=== PATIENT | male | born 1945 | race Caucasian/White ===

== ENCOUNTER → 2017-04-26 07:21 | Outpatient (CLI) | payer MEDICARE, SELFPAY | PROVIDERS: Family Provider Family Medicine; PCP Family Medicine; Visit Provider Urology | DX: R97.20 Elevated prostate specific antigen [PSA] (principal) | CPT/HCPCS: 36415; 84153 ==

== ENCOUNTER → 2017-05-10 07:04 | Outpatient (CLI) | payer MEDICARE, SELFPAY ==
[2017-05-10 09:33] LABS: AST(SGOT) 33 U/L (15-37); Alanine Aminotransfer ALT/SGPT 62 U/L (16-61); Albumin, Serum 3.6 g/dL (3.2-5.0); Alkaline Phosphatase 107 U/L (45-117); Bilirubin, Direct 0.15 mg/dL (0.00-0.30); Cholesterol 137 mg/dL (200); Globulin 3.9 g/dL (2.2-4.2); High Density Lipoprotein 34 mg/dL; Protein, Total 7.5 g/dL (6.4-8.2); Triglycerides 284 mg/dL; Very Low Density Lipoprotein 57 mg/dL (5-40)
== END ==
PROVIDERS: Family Provider Family Medicine; PCP Family Medicine; Visit Provider Internal Medicine Cardiovascular Disease
DX: E78.5 Hyperlipidemia, unspecified (principal); Z79.899 Other long term (current) drug therapy
CPT/HCPCS: 36415; 80061; 80076

== ENCOUNTER → 2017-11-02 08:35 | Outpatient (CLI) | payer MEDICARE, SELFPAY ==
[2017-11-02 10:12] LABS: PSA,Total- Diagnostic 9.91 ng/mL (0.0-4.0)
== END ==
PROVIDERS: Family Provider Family Medicine; PCP Family Medicine; Visit Provider Urology
DX: R97.20 Elevated prostate specific antigen [PSA] (principal)
CPT/HCPCS: 36415; 84153

== ENCOUNTER → 2017-12-11 07:35 | Outpatient (CLI) | payer MEDICARE, SELFPAY ==
[2017-12-11 09:01] LABS: AST(SGOT) 21 U/L (15-37); Alanine Aminotransfer ALT/SGPT 43 U/L (16-61); Albumin, Serum 3.6 g/dL (3.2-5.0); Alkaline Phosphatase 82 U/L (45-117); Bilirubin, Direct 0.17 mg/dL (0.00-0.30); Cholesterol 141 mg/dL (200); Globulin 3.7 g/dL (2.2-4.2); High Density Lipoprotein 33 mg/dL; Protein, Total 7.3 g/dL (6.4-8.2); Triglycerides 306 mg/dL; Very Low Density Lipoprotein 61 mg/dL (5-40)
== END ==
PROVIDERS: Family Provider Family Medicine; PCP Family Medicine; Referring Provider Nurse Practitioner Family; Visit Provider Nurse Practitioner Family
DX: E78.5 Hyperlipidemia, unspecified (principal); Z79.899 Other long term (current) drug therapy
CPT/HCPCS: 36415; 80061; 80076

== ENCOUNTER → 2018-04-29 09:17 | Outpatient (CLI) | payer MEDICARE, SELFPAY ==
[2017-12-13 09:41] VITALS: BMI 31.2
[2018-04-29 13:06] LABS: Anion Gap 9 (5-15); BUN 14 mg/dL (7-18); BUN/Creat Ratio 10.2 RATIO (10-20); Calcium,Total 8.4 mg/dL (8.5-10.1); Chloride 105 mmol/L (98-107); Creatinine, Serum 1.37 mg/dL (0.70-1.30); EST Glomerular Filtration Rate 54 mL/min (>60); Est Glom Filt Rate - Afr Amer 65 mL/min (>60); Glucose 284 mg/dL (74-106); Potassium 4.3 mmol/L (3.5-5.1); Sodium Level 138 mmol/L (136-145); Thyroid Stim Hormone (TSH) 2.57 uIU/mL (0.358-3.74)
== END ==
PROVIDERS: Family Provider Family Medicine; PCP Family Medicine; Visit Provider Family Medicine
DX: E11.9 Type 2 diabetes mellitus without complications (principal)
CPT/HCPCS: 36415; 80048; 84443

== ENCOUNTER → 2018-06-18 10:56 | Outpatient (CLI) | payer MEDICARE, SELFPAY ==
[2018-06-18 09:17] VITALS: BMI 29.8
[2018-06-18 12:02] LABS: Absolute Lymphocyte Count 2.34 X10^3/ul (0.83-4.51); Absolute Neutrophil Count 3.1 X10^3/uL (2.0-7.7); Basophil# 0.05 X10^3/uL; Basophil% 0.8 % (0-1); Eosinophil# 0.33 X10^3/uL; Eosinophils% 5.3 % (0-5); Hematocrit 41.7 % (40-54); Lymphocyte # 2.34 X10^3/ul (4.0); Lymphocyte % 37.7 % (19-41); Mean Corp Hgb Conc 33.6 g/gl (32-36); Mean Corpuscular Hgb 28.6 pg (27.0-32.0); Mean Corpuscular Volume 85.1 fL (80-94); Mean Platelet Vol. 10.8 fl (6.2-12.0); Monocyte% 6.4 % (0-10); Neutrophil # 3.08 X10^3/uL (2.7-7.7); Neutrophil % 49.6 % (47-70); Platelet Count 153 K/mm3 (150-450); RBC Distribution Width CV 13.2 % (11.6-14.6); RBC Distribution Width SD 40.9 fl (35.1-43.9); White Blood Count 6.2 K/mm3 (4.4-11.0)
[2018-06-18 12:14] LABS: POSITIVE COUNT NO; POSITIVE DIFFERENTIAL NO; POSITIVE MORPHOLOGY NO
[2018-06-18 12:57] LABS: AST(SGOT) 23 U/L (15-37); Alanine Aminotransfer ALT/SGPT 47 U/L (16-61); Albumin, Serum 3.7 g/dL (3.2-5.0); Alkaline Phosphatase 91 U/L (45-117); Anion Gap 6 (5-15); BUN 17 mg/dL (7-18); BUN/Creat Ratio 12.9 RATIO (10-20); Bilirubin, Direct 0.21 mg/dL (0.00-0.30); Calcium,Total 8.6 mg/dL (8.5-10.1); Chloride 103 mmol/L (98-107); Cholesterol 139 mg/dL (200); Creatinine, Serum 1.32 mg/dL (0.70-1.30); EST Glomerular Filtration Rate 56 mL/min (>60); Est Glom Filt Rate - Afr Amer 68 mL/min (>60); Globulin 3.8 g/dL (2.2-4.2); Glucose 319 mg/dL (74-106); High Density Lipoprotein 36 mg/dL; Potassium 4.7 mmol/L (3.5-5.1); Protein, Total 7.5 g/dL (6.4-8.2); Sodium Level 137 mmol/L (136-145); Thyroid Stim Hormone (TSH) 2.63 uIU/mL (0.358-3.74); Triglycerides 255 mg/dL; Very Low Density Lipoprotein 51 mg/dL (5-40)
== END ==
PROVIDERS: Family Provider Family Medicine; PCP Family Medicine; Referring Provider Internal Medicine Cardiovascular Disease; Visit Provider Internal Medicine Cardiovascular Disease
DX: I10 Essential (primary) hypertension (principal)
CPT/HCPCS: 36415; 80048; 80061; 80076; 84443; 85025

== ENCOUNTER → 2018-07-09 08:48 | Outpatient (CLI) | payer MEDICARE, SELFPAY ==
[2018-06-18 09:17] VITALS: BMI 29.8
--- NOTE | 2018-07-09 08:54 | ECHOCS_ITS ---
Reason For Study: HTN Procedure This was a 2D Doppler, Color Flow transthoracic echocardiogram. Exam performed in department. Left Ventricle Normal LV size. The estimated ejection fraction is 38 %. Septal motion consistent with IVCD. Stage 1 diastolic dysfunction. There is mild to moderate global hypokinesis of the left ventricle. Right Ventricle Normal RV size. Normal systolic function. Atria Normal left atrium. Normal right atrium. Mitral Valve Normal mitral valve. Tricuspid Valve Normal tricuspid valve. Mild (1+) tricuspid valve insufficiency. Pulmonary artery systolic pressure is 28 mmHg. Aortic Valve Normal aortic valve. Trisinus/trileaflet aortic valve. Pulmonic Valve Normal pulmonic valve. Great Vessels Normal aortic root. The pulmonary artery is normal size. Normal inferior vena cava. Pericardium/Pleural No pericardial effusion. Medication 22 gauge I.V. with prn adaptor inserted into right arm. Diluted definity 2ml given slow IV push to enhance endocardial definition. MMode/2D Measurements & Calculations LVIDd: 4.4 cm IVSd: 0.87 cm LVOT diam: 0.88 cm LVIDs: 3.3 cm LVPWd: 4.3 cm RVDd: 3.8 cm FS: 25.0 % LVOT area: 0.61 cm2 Ao root diam: 3.2 cm LAV(MOD-bp): 36.1 ml EDV(MOD-sp4): 140.3 ml LAV(MOD-bp) Indexed: 17.3 ml/m2 ESV(MOD-sp4): 87.5 ml LAV(MOD-sp2): 48.2 ml EF(MOD-sp4): 37.6 % LAV(MOD-sp4): 20.8 ml EDV(MOD-sp2): 155.8 ml SV(MOD-sp4): 52.8 ml SV(MOD-sp2): 62.2 ml EF(MOD-sp2): 40.0 % LA dimension(2D): 3.7 cm LA A4 area: 9.8 cm2 RA A4 area: 9.7 cm2 Time Measurements MV dec time: 0.31 sec Doppler Measurements & Calculations MV E max vinh: 46.3 cm/sec Lat Peak E' Vinh: 5.7 cm/sec Med Peak E' Vinh: 3.7 cm/sec MV A max vinh: 79.3 cm/sec E/E' lat: 8.2 E/E' med: 12.4 MV E/A: 0.58 Ao V2 max: 100.9 cm/sec LV V1 max: 83.0 cm/sec PA V2 max: 119.8 cm/sec Ao max P.1 mmHg LV V1 max P.8 mmHg CLEMENCIA(V,D): 0.51 cm2 TR max vinh: 243.4 cm/sec TR max P.7 mmHg Interpretation Summary Normal LV size. The estimated ejection fraction is 38 %. Septal motion consistent with IVCD. Stage 1 diastolic dysfunction. Pulmonary artery systolic pressure is 28 mmHg. The global longitudinal strain = -9.8% (abnormal). Compared to prior study, there is no significant change. Contrast injection was performed. Ordering Physician: Benson Cross Referring Physician: JEN VASQUEZ Performed By: Eli Raza, CRISTINA, RVT
== END ==
PROVIDERS: Family Provider Family Medicine; PCP Family Medicine; Referring Provider Internal Medicine Cardiovascular Disease; Visit Provider Internal Medicine Cardiovascular Disease
DX: I25.10 Atherosclerotic heart disease of native coronary artery without angina pectoris (principal); I10 Essential (primary) hypertension
CPT/HCPCS: 93306; Q9957; A4216; C8929

== ENCOUNTER → 2018-11-05 07:11 | Outpatient (CLI) | payer MEDICARE, SELFPAY ==
[2018-06-18 09:17] VITALS: BMI 29.8
[2018-11-05 09:34] LABS: PSA,Total- Diagnostic 9.94 ng/mL (0.0-4.0)
== END ==
PROVIDERS: Family Provider Family Medicine; PCP Family Medicine; Referring Provider Urology; Visit Provider Urology
DX: R97.20 Elevated prostate specific antigen [PSA] (principal)
CPT/HCPCS: 36415; 84153

== ENCOUNTER → 2019-01-01 11:52 | Outpatient (CLI) | payer MEDICARE, SELFPAY ==
[2018-06-18 09:17] VITALS: BMI 29.8
== END ==
PROVIDERS: Family Provider Family Medicine; PCP Family Medicine; Referring Provider Nurse Practitioner Adult Health; Visit Provider Nurse Practitioner Adult Health
DX: R31.9 Hematuria, unspecified (principal)
CPT/HCPCS: 87077; 87086; 87088; 87186

== ENCOUNTER → 2019-01-07 06:22 | Outpatient (CLI) | payer MEDICARE, SELFPAY ==
[2018-06-18 09:17] VITALS: BMI 29.8
--- NOTE | 2019-01-07 06:24 | CT_ITS ---
STUDY: CT ABDOMEN AND PELVIS WITH AND WITHOUT CONTRAST REASON FOR EXAM: Male, 73 years old. Hematuria RADIATION DOSAGE (If Supplied By Facility): CTDIvol = ( 23.51 ) mGy, DLP = ( 3316.9 ) mGycm TECHNIQUE: Transaxial images were obtained from the dome of the diaphragm to the symphysis pubis without oral contrast. IV Isovue 300 100 was administered. Sagittal and coronal images were reconstructed. Individualized dose optimization techniques were used for this CT. COMPARISON: None. FINDINGS: The visualized lung bases are unremarkable. The visualized portions of the heart are within normal limits. Normal liver. Normal gallbladder and extrahepatic biliary system. Normal spleen. Normal pancreas. Normal bilateral adrenal glands. There is a right renal cyst measures 2 cm. There is a stone in the left kidney measures 3 mm without hydronephrosis. There is a left renal cyst measures 2 cm. Normal visualized stomach. Normal small intestine. Normal colon. The appendix is visualized and appears normal. Normal abdominal aorta. Normal inferior vena cava. Normal retroperitoneum. Normal urinary bladder. There is enlargement of the prostate gland. Normal abdominal wall. There are diffuse degenerative changes of the visualized lumbar spine. There is chronic bilateral pars defect of L5 with 5 mm spondylolisthesis at L5-S1. CT/CT Abd/Pelvis W/WO Contrast IMPRESSION: Left kidney stone measures 3 mm. There is no hydronephrosis. Prostate hypertrophy. Electronically Signed: Valeria Tyson, at 7:55 EDT Tel , Service support ,
[2019-01-07 06:41] LABS: CREATININE FINGERSTICK 1.3 mg/dL (0.70-1.30)
== END ==
PROVIDERS: Family Provider Family Medicine; PCP Family Medicine; Referring Provider Nurse Practitioner Adult Health; Visit Provider Nurse Practitioner Adult Health
DX: R31.9 Hematuria, unspecified (principal)
CPT/HCPCS: 74178; Q9967

== ENCOUNTER → 2019-05-01 09:36 | Outpatient (CLI) | payer MEDICARE, SELFPAY ==
[2018-06-18 09:17] VITALS: BMI 29.8
[2019-05-01 10:44] LABS: AST(SGOT) 20 U/L (15-37); Alanine Aminotransfer ALT/SGPT 40 U/L (16-61); Albumin, Serum 3.7 g/dL (3.2-5.0); Alkaline Phosphatase 89 U/L (45-117); Anion Gap 7 (5-15); BUN 16 mg/dL (7-18); BUN/Creat Ratio 11.5 RATIO (10-20); Chloride 106 mmol/L (98-107); Creatinine, Serum 1.39 mg/dL (0.70-1.30); EST Glomerular Filtration Rate 53 mL/min (>60); Est Glom Filt Rate - Afr Amer 64 mL/min (>60); Globulin 3.7 g/dL (2.2-4.2); Glucose 375 mg/dL (74-106); Potassium 4.4 mmol/L (3.5-5.1); Protein, Total 7.4 g/dL (6.4-8.2); Sodium Level 137 mmol/L (136-145); Thyroid Stim Hormone (TSH) 2.75 uIU/mL (0.358-3.74)
== END ==
PROVIDERS: PCP Family Medicine; Referring Provider Family Medicine; Visit Provider Family Medicine
DX: E11.9 Type 2 diabetes mellitus without complications (principal)
CPT/HCPCS: 36415; 80053; 84443

== ENCOUNTER → 2019-08-07 08:22 | Outpatient (CLI) | payer MEDICARE, SELFPAY ==
[2018-06-18 09:17] VITALS: BMI 29.8
[2019-08-07 09:53] LABS: PSA,Total- Diagnostic 8.36 ng/mL (0.0-4.0)
== END ==
PROVIDERS: PCP Family Medicine; Referring Provider Urology; Visit Provider Urology
DX: N40.1 Benign prostatic hyperplasia with lower urinary tract symptoms (principal)
CPT/HCPCS: 36415; 84153

== ENCOUNTER → 2019-08-19 08:03 | Outpatient (CLI) | payer MEDICARE, SELFPAY ==
[2019-08-14 09:47] VITALS: BMI 28.4
[2019-08-19 08:43] LABS: AST(SGOT) 19 U/L (15-37); Alanine Aminotransfer ALT/SGPT 35 U/L (16-61); Albumin, Serum 3.6 g/dL (3.2-5.0); Alkaline Phosphatase 82 U/L (45-117); Anion Gap 6 (5-15); BUN 19 mg/dL (7-18); BUN/Creat Ratio 14.6 RATIO (10-20); Bilirubin, Direct 0.23 mg/dL (0.00-0.30); Calcium,Total 8.5 mg/dL (8.5-10.1); Chloride 105 mmol/L (98-107); Cholesterol 151 mg/dL (200); EST Glomerular Filtration Rate 57 mL/min (>60); Est Glom Filt Rate - Afr Amer 69 mL/min (>60); Globulin 3.7 g/dL (2.2-4.2); Glucose 311 mg/dL (74-106); High Density Lipoprotein 35 mg/dL; Potassium 4.4 mmol/L (3.5-5.1); Protein, Total 7.3 g/dL (6.4-8.2); Sodium Level 139 mmol/L (136-145); Triglycerides 307 mg/dL; Very Low Density Lipoprotein 61 mg/dL (5-40)
== END ==
PROVIDERS: PCP Family Medicine; Referring Provider Internal Medicine Cardiovascular Disease; Visit Provider Internal Medicine Cardiovascular Disease
DX: E78.00 Pure hypercholesterolemia, unspecified (principal); I25.10 Atherosclerotic heart disease of native coronary artery without angina pectoris; E78.5 Hyperlipidemia, unspecified; I42.8 Other cardiomyopathies; I44.7 Left bundle-branch block, unspecified; I44.0 Atrioventricular block, first degree; I10 Essential (primary) hypertension
CPT/HCPCS: 36415; 80048; 80061; 80076

== ENCOUNTER → 2020-01-29 09:48 | Outpatient (CLI) | payer MEDICARE, SELFPAY ==
[2020-01-29 13:35] LABS: AST(SGOT) 18 U/L (15-37); Alanine Aminotransfer ALT/SGPT 33 U/L (16-61); Albumin, Serum 3.8 g/dL (3.2-5.0); Alkaline Phosphatase 86 U/L (45-117); Anion Gap 5 (5-15); BUN 21 mg/dL (7-18); BUN/Creat Ratio 14.7 RATIO (10-20); Calcium,Total 8.8 mg/dL (8.5-10.1); Chloride 107 mmol/L (98-107); Cholesterol 145 mg/dL (200); Creatinine, Serum 1.43 mg/dL (0.70-1.30); EST Glomerular Filtration Rate 51 mL/min (>60); Est Glom Filt Rate - Afr Amer 62 mL/min (>60); Glucose 185 mg/dL (74-106); High Density Lipoprotein 37 mg/dL; Potassium 4.5 mmol/L (3.5-5.1); Protein, Total 7.8 g/dL (6.4-8.2); Sodium Level 139 mmol/L (136-145); Triglycerides 226 mg/dL; Very Low Density Lipoprotein 45 mg/dL (5-40)
== END ==
PROVIDERS: PCP Family Medicine; Referring Provider Family Medicine; Visit Provider Family Medicine
DX: R97.20 Elevated prostate specific antigen [PSA] (principal); E11.9 Type 2 diabetes mellitus without complications
CPT/HCPCS: 36415; 80053; 80061; 84153

== ENCOUNTER → 2020-04-06 07:45 | Outpatient (CLI) | payer MEDICARE, SELFPAY | PROVIDERS: PCP Family Medicine; Referring Provider Urology; Visit Provider Urology | DX: R97.20 Elevated prostate specific antigen [PSA] (principal) | CPT/HCPCS: 36415; 84153 ==

== ENCOUNTER 2020-04-23 08:29 | Outpatient (RCR) | payer MEDICARE, SELFPAY | END 2020-04-23 23:59 | LOC: IMMUN 08:29 | PROVIDERS: PCP Family Medicine; Referring Provider Family Medicine; Visit Provider Family Medicine | DX: Z23 Encounter for immunization (principal) | CPT/HCPCS: 0011A; 0012A; 91301 ==

== ENCOUNTER → 2020-08-19 08:52 | Outpatient (CLI) | payer MEDICARE, SELFPAY ==
--- NOTE | 2020-08-19 09:04 | RAD_ITS ---
STUDY: X-RAY - LEFT ELBOW REASON FOR EXAM: Male, 74 years old. POSTERIOR ELBOW PAIN, NO INJURY TECHNIQUE: 3 view(s) of the elbow. COMPARISON: None. FINDINGS: Normal visualized radius and ulna. Small corticated ossicles at the periphery of the lateral humeral condyle likely represent unfused apophyses. The humerus is otherwise normal. Normal radiocapitellar and ulnotrochlear articulations. The soft tissue structures are unremarkable. There is no demonstrated fracture. RAD/Elbow min 3 Views IMPRESSION: No visualized acute or significant process of the elbow Electronically Signed: Rogers Wells MD at 21:16 EDT , Service support ,
[2020-08-19 10:49] LABS: AST(SGOT) 20 U/L (15-37); Alanine Aminotransfer ALT/SGPT 30 U/L (16-61); Albumin, Serum 3.8 g/dL (3.2-5.0); Alkaline Phosphatase 89 U/L (45-117); Anion Gap 8 (5-15); BUN 21 mg/dL (7-18); BUN/Creat Ratio 16.8 RATIO (10-20); Calcium,Total 8.7 mg/dL (8.5-10.1); Chloride 106 mmol/L (98-107); Cholesterol 173 mg/dL (200); Creatinine, Serum 1.25 mg/dL (0.70-1.30); EST Glomerular Filtration Rate 60 mL/min (>60); Est Glom Filt Rate - Afr Amer 72 mL/min (>60); Globulin 3.9 g/dL (2.2-4.2); Glucose 205 mg/dL (74-106); High Density Lipoprotein 42 mg/dL; Protein, Total 7.7 g/dL (6.4-8.2); Sodium Level 139 mmol/L (136-145); Thyroid Stim Hormone (TSH) 2.62 uIU/mL (0.358-3.74); Triglycerides 273 mg/dL; Very Low Density Lipoprotein 55 mg/dL (5-40)
== END ==
PROVIDERS: PCP Family Medicine; Referring Provider Family Medicine; Visit Provider Family Medicine
DX: M25.522 Pain in left elbow (principal); E11.9 Type 2 diabetes mellitus without complications
CPT/HCPCS: 36415; 73080; 80053; 80061; 84443

== ENCOUNTER 2020-09-30 08:00 | Outpatient (RCR) | payer MEDICARE, SELFPAY ==
--- NOTE | 2020-08-26 12:39 | HP.PTEVAL ---
Patient's Visit Information ROBBIN BROWN is a 74 year old M referred to Physical Therapy by Dr. Arnie Whalen MD with a diagnosis of Tricep Tendonitis. Date of Evaluation: 08/25/20 Physical Therapist: Josue Wharton DPT - Visit Plan Frequency: 1-2x /Week Duration: 4-6 Weeks Plan: Shoulder, scapular, tricep, bicep, wrist flexor, and wrist extensor strengthening. Modalities for pain relief. - Subjective The pt. is here today for left elbow pain near the medial epicondyle, referred by Dr. Whalen. The pt. states that his pain started without a cause a few weeks ago and has been intermittent ever since. The pt. cannot recall a specific event that caused his pain. He states that his pain comes on mostly when gardening, mowing, doing things around the house for a long period of time, and while opening a jar with his left hand. The pt. has been taking Tylenol or Advil occasionally for pain relief, but does not notice a significant change. The pt. works for an [employer] during the week and tries to gold about one time a week, but would like to golf more. He does not experience pain in the elbow when golfing or while he sleeps. The pt. is right handed and golfs right handed. He states that he used to come to [employer] to workout 2x a week prior to [place], but has not done this for over a year. He feels that he does not have as much strength in his left arm compared to his right arm and compared to what it used to be. He states that his pain at its worst can get up to a 2/10 pain, but comes and goes spontaneously. He states that he always feels something there. The pt. is not experiencing any N/T, SOB, chest tightness, frequent headaches, changes in vision/hearing, or frequent stomach aches. - Pain Left elbow Pain Intensity (Out of 10): 1 Pain Intensity Range: 2 - Objective Posture: All WNL. ROM: Shoulder flexion bilat WNL, shoulder abduction bilat WNL, behind the head bilat WNL, behind the back bilat WNL, elbow flexion bilat WNL, elbow extension bilat WNL. MMT: shoulder flexion bilat 5/5, shoulder abduction bilat 5/5, tricep R 5/5, L 4/5, bicep R 5/5, L 4+/5, brachioradialis R 5/5, L 4+/5, brachialis R 5/5, L 4+/5, wrist flexion bilat 5/5, wrist extension bilat 5/5, upper trap bilat 5/5, middle trap 4+/5 bilat, lower trap 4+/5. Palpation: TTP on left medial epicondyle and superior to the medial epicondyle, near triceps tendon. No tenderness noted along tricep or bicep msucle belly, or on lateral epicondyle and the olecranon. Observation: Pt. was able to perform 5 wall pushups without having an increase in symptoms, but with tricep wall pushups the pt. did experience an increase in his symptoms. Pts. symptoms did not increase with banded tricep extension or with eccentric wrist flexion. Special tests: - Cozens, - Ness, - Maudsley's, but did cause pain to the medial epicondyle, - resisted flexion test, - passive extension test. - Special Tests L Elbow Tinels - Ulnar n.: Negative L Elbow Valgus Stress Test - MCL Instability: Negative L Elbow Varus Stress Stest - MCL Instability: Negative - Goals Goal 1:: LTG: The pt. will be independent and compliant with their HEP. Goal Time Frame: 2-4 Weeks Goal 2:: LTG: The pt. will be able to perform all ADL's and activities without having an increase in symptoms of pain and discomfort. Goal Time Frame: 4-6 Weeks Goal 3:: LTG: The pt. will increase his left general upper extremity strength to a 5/5, so he can perform all activities without limitations. Goal Time Frame: 4-6 Weeks Goal 4:: LTG: Pt. to have no occurrence in symptoms for 2 whole weeks. Goal Time Frame: 4-6 Weeks - Rehabilitation Potential Physical Therapy Diagnosis: The pt. is a 74 yo male who presents to the clinic with medial epicondyle pain that occurs intermittently. The pts. symptoms are reproduced when opening a jar or doing activities that involve the upper extremities for long periods of time. The pt. exhibits limitations in left upper extremity strength and is tender to palpation on the medial epicondyle. The pt. has been experiencing his pain for a couple of weeks and would like for PT to address his impairments and limitations, so he can resume doing all ADL's and playing golf without pain or discomfort. Rehabilitation Potential: Good - Anticipated Interventions Patient/Client Instruction: Educate patient on: Condition, Plan of Care For the Purpose of:: To decrease pain, To increase ROM, To improve muscle performance and motor function, To improve ability to perform ADL's, To increase tolerance to activity/condition/position, To decrease level of supervision to perform tasks, To increase flexibility/ROM, To assume or resume ADL's Therapeutic Exercise to Include: Strength training, Body mechanics, Flexibilty training, Passive ROM, Active ROM, Scapular Strength/Stabilization For the Purpose of:: To decrease pain, To increase ROM, To improve muscle performance and motor function, To improve ability to perform ADL's, To increase tolerance to activity/condition/position, To improve performance and independence with ADL's, To improve ability of physical actions for home/community/work/leisure, To increase flexibility/ROM, To improve endurance, To assume or resume ADL's, To improve tolerance to ADL's Manual Therapy Techniques to Include: Trigger point massage, Scar massage, Mobilization, Passive ROM For the Purpose of:: To decrease pain, To increase ROM, To improve muscle performance and motor function, To improve ability to perform ADL's, To increase tolerance to activity/condition/position, To improve performance and independence with ADL's, To increase flexibility/ROM, To assume or resume ADL's TENS: Yes Cryotherapy (ice pack, ice massage): Yes Thermo therapy (hot pack): Yes Ultrasound (thermal/non thermal): Yes For the Purpose of:: To decrease pain, To improve nutrient delivery to tissue, To improve muscle performance and motor function, To increase tolerance to activity/condition/position, To improve performance and independence with ADL's Thank you for the opportunity to evaluate your patient. For Medicare and Medicare HMO plans, please review the plan of care and approve it. It will need to be FAXED BACK to us at [phone] for Medicare purposes. For Medicare only, by signing this I certify the plan of care. Please let me know if there are questions or concerns regarding this plan of care. Physician Signature: Date:
== END 2020-09-30 19:00 | disposition home or self-care (01) ==
LOC: PT 08:00
PROVIDERS: PCP Family Medicine; Referring Provider Family Medicine; Visit Provider Family Medicine
DX: M77.8 Other enthesopathies, not elsewhere classified (principal)
CPT/HCPCS: 97035; 97110; 97140; 97161

== ENCOUNTER 2021-05-25 08:35 | Outpatient (CLI) | payer MEDICARE, SELFPAY ==
[2021-05-25 10:37] LABS: ALB/GLOB Ratio 1.1 RATIO (0.9-2.4); AST(SGOT) 26 U/L (15-37); Alanine Aminotransfer ALT/SGPT 40 U/L (16-61); Albumin, Serum 3.8 g/dL (3.2-5.0); Alkaline Phosphatase 85 U/L (45-117); Anion Gap 8 (5-15); BUN 18 mg/dL (7-18); Calcium,Total 8.3 mg/dL (8.5-10.1); Chloride 108 mmol/L (98-107); Cholesterol 133 mg/dL (200); EST Glomerular Filtration Rate 62 mL/min (>60); Est Glom Filt Rate - Afr Amer 75 mL/min (>60); Globulin 3.6 g/dL (2.2-4.2); Glucose 193 mg/dL (74-106); High Density Lipoprotein 33 mg/dL; Protein, Total 7.4 g/dL (6.4-8.2); Sodium Level 138 mmol/L (136-145); Thyroid Stim Hormone (TSH) 2.96 uIU/mL (0.358-3.74); Triglycerides 213 mg/dL; Very Low Density Lipoprotein 43 mg/dL (5-40)
== END 2021-05-25 23:59 | disposition home or self-care (01) ==
LOC: MFPLAB 08:36
PROVIDERS: PCP Family Medicine; Referring Provider Family Medicine; Visit Provider Family Medicine
DX: E11.9 Type 2 diabetes mellitus without complications (principal); R97.20 Elevated prostate specific antigen [PSA]
CPT/HCPCS: 36415; 80053; 80061; 84153; 84403; 84443

== ENCOUNTER 2021-05-26 09:59 | Outpatient (CLI) | payer MEDICARE, SELFPAY ==
--- NOTE | 2021-05-26 10:05 | ECHOD_ITS ---
Reason For Study: CHF Procedure This was a 2D Doppler, Color Flow transthoracic echocardiogram. Exam performed in department. Left Ventricle Normal LV size. Mild concentric left ventricular hypertrophy. The estimated ejection fraction is 35 %. Septal motion consistent with IVCD. Stage 1 diastolic dysfunction. There is moderate global hypokinesis of the left ventricle. Right Ventricle Normal RV size. Normal systolic function. Atria Normal left atrium. Normal right atrium. Mitral Valve Normal mitral valve. Tricuspid Valve Normal tricuspid valve. Mild tricuspid valve insufficiency. Pulmonary artery systolic pressure is 20 mmHg. Aortic Valve Trisinus/trileaflet aortic valve. Pulmonic Valve Normal pulmonic valve. Great Vessels Normal aortic root. The pulmonary artery is normal size. Normal inferior vena cava. Pericardium/Pleural No pericardial effusion. MMode/2D Measurements & Calculations LVIDd: 4.5 cm IVSd: 1.2 cm Ao root diam: 3.5 cm LVIDs: 3.5 cm LVPWd: 1.3 cm RVDd: 3.5 cm FS: 20.7 % LAV(MOD-bp): 52.3 ml LA A4 area: 17.7 cm2 LA dimension(2D): 3.4 cm LAV(MOD-bp) Indexed: 25.3 ml/m2 LAV(MOD-sp2): 49.8 ml LAV(MOD-sp4): 51.0 ml RA A4 area: 12.8 cm2 Doppler Measurements & Calculations MV E max vinh: 36.4 cm/sec Lat Peak E' Vinh: 6.2 cm/sec Med Peak E' Vinh: 4.0 cm/sec MV A max vinh: 86.6 cm/sec E/E' lat: 5.9 E/E' med: 9.1 MV E/A: 0.42 Ao V2 max: 94.5 cm/sec LV V1 max: 72.4 cm/sec PA V2 max: 112.6 cm/sec Ao max P.6 mmHg LV V1 max P.1 mmHg TR max vinh: 194.4 cm/sec TR max P.1 mmHg ECHO/Echo Complete Interpretation Summary Normal LV size. The estimated ejection fraction is 35 %. There is moderate global hypokinesis of the left ventricle. Septal motion consistent with IVCD. Mild concentric left ventricular hypertrophy. Stage 1 diastolic dysfunction. Structurally normal valves. Compared to previous study, the left ventricular sy stolic function is the same.. Ordering Physician: Gianni Colmenares Referring Physician: Anup Whalen Performed By: Areli Baker RDCS, RVT
== END 2021-05-26 23:59 | disposition home or self-care (01) ==
PROVIDERS: PCP Family Medicine; Referring Provider Nurse Practitioner Family; Visit Provider Nurse Practitioner Family
DX: I44.7 Left bundle-branch block, unspecified (principal); I42.8 Other cardiomyopathies; I10 Essential (primary) hypertension
CPT/HCPCS: 93306

== ENCOUNTER 2022-01-19 08:00 | Outpatient (RCR) | payer MEDICARE, SELFPAY ==
--- NOTE | 2021-11-29 09:02 | HP.PTEVAL_ITS ---
Patient's Visit Information ROBBIN BROWN is a 76 year old M referred to Physical Therapy by Dr. Arnie Whalen MD with a diagnosis of lumbar strain. Date of Evaluation: 11/29/21 Physical Therapist: GABRIELLE Gomez - Visit Plan Frequency: 2x /Week Duration: 4 Weeks Plan: 2X/ week for 4 weeks for L-spine core stability, stretching of the L- spine, LE strength, postural exercises, MT to the L spine and paraspinals with HEP and modalities as needed. - Subjective Pt feels that he has a back muscle issue and on both sides. He can feel a stretch when bending FW. Today does not feel too bad. He can golf. Dr Juares did not feel it was spine involved. He has no leg weakness but he has a little bit of diabetic neuropathy. He was down with COVID and it took him down a little bit. He had no major issue but just tired. His back started to hurt for a few weeks now ([place] the end of [place] Sitting makes it worse. He can feel it when he starts to get up. He has some L knee pain but it does not seem to be related to his back. He does not sleep well and sleeps on his sides. He goes up to the bathroom every 2.5-3 hours but somedays he can get 4 hours. Going up and down stairs he can feel it. He can feel after he does his garden. He just golfs and working in the yard but no exercises. 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 - Pain back pain Pain Intensity (Out of 10): 0 - Objective Gait: Pt walks with decrease trunk rotation but otherwise normal gait pattern. R hip flex 16.4# and L hip flex 12.9#. R knee ext 16.8# and L knee ext 15.4#. R knee flex 10.8# and L knee flex 8.9#. Pt is able to walk on heels and toes. Trunk AROM: flexion 50%, Ext 10%, SB B 50%, Rot 50%. Prone press up... almost no back extension and pelvis is up off the mat table and not able to extend B arms. Seated trunk flex X 10 increase pain when bend fw. Pt had some increase discomfort with rotation mobs around L1-L3 but extension mobs felt good with no pain. Pt reports that he feels it around his L-spine paraspinals. Pt has tight B piriformis. No pain with LTR. Patella DTR's 2+/3. Negative B SLUMP test and negative SLR B - Balance/Special Test Scores Oswestry Low Back Score: 8 - Goals Goal 1:: I HEP Goal Time Frame: 4-6 Weeks Goal 2:: Decrease LB pain to 1/10 with ADL's especially with sitting unsupported Goal Time Frame: 4-6 Weeks Goal 3:: Increase trunk AROM with no pain (at time of the eval: Trunk AROM: flexion 50%, Ext 10%, SB B 50%, Rot 50%. Prone press up... almost no back extension and pelvis is up off the mat table and not able to extend B arms. Seated trunk flex X 10 increase pain when bend fw) Goal Time Frame: 4-6 Weeks - Rehabilitation Potential Rehabilitation Potential: Excellent - Anticipated Interventions Patient/Client Instruction: Educate patient on: Condition, Plan of Care For the Purpose of:: To decrease pain, To increase ROM, To improve nutrient delivery to tissue, To improve muscle performance and motor function, To improve ability to perform ADL's, To increase tolerance to activity/condition/position, To improve performance and independence with ADL's, To decrease level of supervision to perform tasks, To improve ability of physical actions for home/community/work/leisure, To improve health of tissue, To decrease soft tissue restriction, To increase flexibility/ROM Therapeutic Exercise to Include: Strength training, Body mechanics, Postural training, Flexibilty training, Neuromotor development, Passive ROM, Active ROM, Dynamic Lumbar Stabilization, Torsten Exercises For the Purpose of:: To decrease pain, To increase ROM, To improve nutrient delivery to tissue, To improve muscle performance and motor function, To improve ability to perform ADL's, To increase tolerance to activity/condition/position, To improve performance and independence with ADL's, To decrease level of supervision to perform tasks, To improve ability of physical actions for home/community/work/leisure, To improve gait and locomotor functions, To improve health of tissue, To decrease soft tissue restriction, To increase flexibility/ROM Manual Therapy Techniques to Include: Mobilization, Passive ROM, Soft tissue mobilization For the Purpose of:: To decrease pain, To decrease swelling/inflammation, To increase ROM, To improve nutrient delivery to tissue, To improve muscle performance and motor function, To improve ability to perform ADL's, To increase tolerance to activity/condition/position, To improve performance and independence with ADL's, To improve ability of physical actions for home/community/work/leisure, To improve health of tissue, To decrease soft tissue restriction, To increase flexibility/ROM IF ES: Yes Cryotherapy (ice pack, ice massage): Yes Thermo therapy (hot pack): Yes Ultrasound (thermal/non thermal): Yes For the Purpose of:: To decrease pain, To improve nutrient delivery to tissue, To improve muscle performance and motor function Thank you for the opportunity to evaluate your patient. For Medicare and Medicare HMO plans, please review the plan of care and approve it. It will need to be FAXED BACK to us at [phone] for Medicare purposes. For Medicare only, by signing this I certify the plan of care. Please let me know if there are questions or concerns regarding this plan of care. Physician Signature: Date:
--- NOTE | 2022-01-19 09:04 | HP.PTREVAL_ITS ---
Dr. Arnie Whalen MD, It has been my pleasure to treat ROBBIN BROWN over the last 10 visits for lumbar strain. Please see the progress note below for an update on the physical therapy plan of care! Subjective: Pt. reports being 75% better overall. what ever we did last time really helped. pt. reports having a root canal yesterday with good toelrance. Objective/Function: Pt. did well with PT this date. No issues post PT. Pt. to trial exercise on his own at this point in time. No pain post PT. Plan Plan: Pt. to trial on his own at this point in time. Pt. I with HEP. Pt. has good ROM mild increase iwth extension. He reports being able to do yard work better and tolerate work better. Balance/Gait/Functional tests - Balance/Special Test Scores Oswestry Low Back Score: 5 Goals Goal 1:: I HEP Goal Time Frame: 4-6 Weeks Goal Progress: Progressing Goal 2:: Decrease LB pain to 1/10 with ADL's especially with sitting unsupported Goal Time Frame: 4-6 Weeks Goal Progress: Progressing Goal 3:: Increase trunk AROM with no pain (min loss in all directions with increase in symptoms) Goal Time Frame: 4-6 Weeks Goal Progress: Progressing Anticipated Interventions Patient/Client Instruction: Educate patient on: Condition, Plan of Care For the Purpose of:: To decrease pain, To increase ROM, To improve nutrient de livery to tissue, To improve muscle performance and motor function, To improve ability to perform ADL's, To increase tolerance to activity/condition/position, To improve performance and independence with ADL's, To decrease level of supervision to perform tasks, To improve ability of physical actions for home/community/work/leisure, To improve health of tissue, To decrease soft tissue restriction, To increase flexibility/ROM Therapeutic Exercise to Include: Strength training, Body mechanics, Postural training, Flexibilty training, Neuromotor development, Passive ROM, Active ROM, Dynamic Lumbar Stabilization, Torsten Exercises For the Purpose of:: To decrease pain, To increase ROM, To improve nutrient delivery to tissue, To improve muscle performance and motor function, To improve ability to perform ADL's, To increase tolerance to activity/condition/position, To improve performance and independence with ADL's, To decrease level of superv ision to perform tasks, To improve ability of physical actions for home/community/work/leisure, To improve gait and locomotor functions, To improve health of tissue, To decrease soft tissue restriction, To increase flexibility/ROM Manual Therapy Techniques to Include: Mobilization, Passive ROM, Soft tissue mobilization For the Purpose of:: To decrease pain, To decrease swelling/inflammation, To increase ROM, To improve nutrient delivery to tissue, To improve muscle performance and motor function, To improve ability to perform ADL's, To increase tolerance to activity/condition/position, To improve performance and independence with ADL's, To improve ability of physical actions for home/community/work/leisure, To improve health of tissue, To decrease soft tissue restriction, To increase flexibility/ROM IF ES: Yes Cryotherapy (ice pack, ice massage): Yes Thermo therapy (hot pack): Yes Ultrasound (thermal/non thermal): Yes For the Purpose of:: To decrease pain, To improve nutrient delivery to tissue, To improve muscle performance and motor function Please do not hesitate to contact me at [phone] by phone or if you have questions or concerns regarding this new plan of care! Sincerely, DEENA BlandonT
== END 2022-01-19 19:00 | disposition home or self-care (01) ==
LOC: PT 08:00
PROVIDERS: PCP Family Medicine; Referring Provider Family Medicine; Visit Provider Family Medicine
DX: S39.012D Strain of muscle, fascia and tendon of lower back, subsequent encounter (principal); X58.XXXD Exposure to other specified factors, subsequent encounter
CPT/HCPCS: 97110; 97161

== ENCOUNTER → 2022-06-13 | Outpatient (CLI) | payer MEDICARE, SELFPAY ==
[2022-06-13 10:32] LABS: AST(SGOT) 18 U/L (15-37); Alanine Aminotransfer ALT/SGPT 29 U/L (16-61); Albumin, Serum 3.7 g/dL (3.2-5.0); Alkaline Phosphatase 77 U/L (45-117); Anion Gap 2 (5-15); BUN 20 mg/dL (7-18); BUN/Creat Ratio 16.3 RATIO (10-20); Calcium,Total 8.5 mg/dL (8.5-10.1); Chloride 108 mmol/L (98-107); Cholesterol 131 mg/dL (200); Creatinine, Serum 1.23 mg/dL (0.70-1.30); EST Glomerular Filtration Rate 60 mL/min (>60); Est Glom Filt Rate - Afr Amer 73 mL/min (>60); Globulin 3.7 g/dL (2.2-4.2); Glucose 229 mg/dL (74-106); High Density Lipoprotein 33 mg/dL; Potassium 4.1 mmol/L (3.5-5.1); Protein, Total 7.4 g/dL (6.4-8.2); Sodium Level 135 mmol/L (136-145); Thyroid Stim Hormone (TSH) 2.78 uIU/mL (0.358-3.74); Triglycerides 270 mg/dL; Very Low Density Lipoprotein 54 mg/dL (5-40)
== END | disposition home or self-care (01) ==
LOC: MFPLAB 09:15
PROVIDERS: PCP Family Medicine; Referring Provider Family Medicine; Visit Provider Family Medicine
DX: E11.43 Type 2 diabetes mellitus with diabetic autonomic (poly)neuropathy (principal); R97.20 Elevated prostate specific antigen [PSA]
CPT/HCPCS: 36415; 80053; 80061; 84153; 84443

== ENCOUNTER 2022-08-31 10:33 | Emergency (ER) | payer MEDICARE, SELFPAY ==
[2022-08-31 10:35] VITALS: BP 143/78; PULSE 69; RESP 18; TEMP 36.6; O2SAT 99; BMI 28.4
[2022-08-31 11:06] LABS: Bacteria 0 SEEN /hpf (None Seen); Mucous, Urine 0 SEEN /hpf (<or=2+); Red Blood Cells-Urine 0 SEEN /hpf (0-5); Squamous Epithelial Cells - UA 0 SEEN /hpf (0-5); White Blood Cells 0 SEEN /hpf (0-5)
[2022-08-31 11:13] LABS: Absolute Lymphocyte Count 2.62 X10^3/uL (0.83-4.51); Absolute Neutrophil Count 4.8 X10^3/uL (2.0-7.7); Basophil# 0.09 X10^3/uL; Basophil% 1.1 % (0-1); Eosinophil# 0.32 X10^3/uL; Eosinophils% 3.8 % (0-5); Hemoglobin 15.9 g/dL (13.0-16.5); Lymphocyte # 2.62 X10^3/ul (0.83-4.51); Mean Corp Hgb Conc 33.1 g/dL (32-36); Mean Corpuscular Hgb 28.9 pg (27.0-32.0); Mean Corpuscular Volume 87.3 fL (80-94); Mean Platelet Vol. 10.1 fl (6.2-12.0); Monocyte# 0.62 X10^3/uL; Monocyte% 7.3 % (0-10); NRBC Flagged by Analyzer 0 % (0-5); Neutrophil # 4.75 X10^3/uL (2.7-7.7); Neutrophil % 56.2 % (47-70); Platelet Count 204 K/mm3 (150-450); RBC Distribution Width CV 12.9 % (11.6-14.6); RBC Distribution Width SD 41.1 fl (35.1-43.9); White Blood Count 8.5 K/mm3 (4.4-11.0)
[2022-08-31 11:14] LABS: Color, Urine Yellow (Yellow); Glucose, Dipstick 1000 mg/dl (Normal); Ketone-Dipstick Negative (Negative); Leukocyte Esterase-Dipstick Negative /ul (Negative); Nitrite-Dipstick Negative (Negative); Occult Blood-Urine Negative /ul (Negative); Protein-Dipstick Negative (Negative); Urine Bilirubin Dipstick Negative (Negative); Urine Clarity Clear (Clear); Urine Urobilinogen Normal (Normal)
[2022-08-31 11:25] LABS: Anion Gap 5 (5-15); BUN 21 mg/dL (7-18); BUN/Creat Ratio 14.8 RATIO (10-20); Calcium,Total 9.1 mg/dL (8.5-10.1); Chloride 104 mmol/L (98-107); Creatinine, Serum 1.42 mg/dL (0.70-1.30); EST Glomerular Filtration Rate 51 mL/min (>60); Est Glom Filt Rate - Afr Amer 62 mL/min (>60); Estimated Creatinine Clearance 44.27 ml/min; Glucose 233 mg/dL (74-106); Potassium 4.4 mmol/L (3.5-5.1); Sodium Level 135 mmol/L (136-145)
--- NOTE | 2022-08-31 11:42 | ED.VIS.BACK ---
HPI History of Present Illness Chief Complaint: Flank Pain Detail of Chief Complaint: Right back pain Informant: patient Onset/Context/Timing Onset: Weeks (Onset 2 weeks ago after activity) Context: Onset with activity Injury: lifting, twisting, bending and repetitive motion Timing: Continuous and Waxes and wanes Quality: Dull Location: Buttock (Right side) Current Severity: Mild Maximum Severity: Moderate Worsened by: improves with Movement, Bending and Lifting Relieved by: Nothing Associated Symptoms Associated Symptoms: - (Denies urologic symptoms. Denies radicular pain. Denies saddle paresthesia or anesthesia); Negative for Numbness, Tingling, Radiation to Right Leg, Radiation to Left Leg, Fever, Abdominal Pain, Dysuria, Unable to Ambulate, Unable to Transfer, Urinary Retention, Urinary Incontinence, Constipation or Fecal Incontinence Narrative Narrative: Patient is a 76-year-old male with history of hypertension, hypercholesterolemia and diet [place] who presents with right lower back pain without radiculopathy. He denies bowel bladder dysfunction. No saddle paresthesia or anesthesia. Denies foot drop. Denies buckling of his knees going up or down steps. There is no history of direct trauma. Does have a remote history of renal calculi 10 years ago. He states this pain is not similar. He states when he had obstruction due to a ureteral stone he could not find a position of comfort. He is able to find a position of comfort. He denies fever, chills night sweats. Denies weight gain or weight loss. Prior similar symptoms: No Recent Illness/Hospitalization: No PFSH [facility] Medical History Arthritis Atherosclerotic heart disease of [place] coronary artery without angina pectoris COVID-19 (09/12/21) Essential (primary) hypertension First degree AV block Hyperlipidemia Laceration of forehead without complication Left bundle branch block Non-ischemic cardiomyopathy Pre-diabetes Prostate cancer Home Medications fexofenadine 180 mg tablet 180 mg PO DAILY PRN Allergies 03/29/16 [History Last Taken Unknown] omega-3 fatty acids-fish oil 300 mg-1,000 mg capsule 1 ea PO DAILY 03/29/16 [History Last Taken Unknown] sildenafil (pulm.hypertension) 20 mg tablet 20 mg PO DAILY PRN ED 03/29/16 [History Last Taken Unknown] turmeric root extract 538 mg capsule 750 mg PO DAILY 08/14/19 [History Last Taken Unknown] losartan 50 mg tablet 50 mg PO DAILY #90 tabs 10/19/20 [Rx Last Taken Unknown] lansoprazole 30 mg capsule,delayed release 30 mg PO DAILY #90 caps 11/02/20 [Rx Last Taken Unknown] atorvastatin 40 mg tablet 40 mg PO QHS #90 tabs 06/07/21 [Rx Last Taken Unknown] dapagliflozin propanediol 10 mg tablet [facility] 10 mg PO DAILY #90 tabs 06/07/21 [Rx Last Taken Unknown] amlodipine 5 mg tablet 5 mg PO DAILY #90 tabs 09/26/21 [Rx Last Taken Unknown] carvedilol 12.5 mg tablet 12.5 mg PO BID #180 tabs 09/26/21 [Rx Last Taken Unknown] Allergy/AdvReac Type Severity Reaction Status Date / Time tree and shrub pollen Allergy Unknown Verified 08/31/22 10:36 metformin AdvReac Severe dizziness, Verified 08/31/22 10:36 drenching sweat Family History Father , age 74 from infection post leg amputation Post-operative infection Surgical History History of left heart catheterization (03/30/16) Social History (Updated 08/31/22 @ 11:[address] Odilon Esquivel MD) household members: none Smoking Status: Never smoker alcohol intake: current alcohol intake frequency: a few times a month Alcohol type: beer ROS ROS ED Constitutional Constitutional ED: Denies chills, fever(s), subjective, sweats or weight loss Eyes Eyes: Denies blurry vision, change in vision or diplopia ENT ENT ED: Denies ear pain, rhinorrhea or sore throat Cardiovascular Cardiovascular: Denies chest pain, palpitations or racing heartbeat Respiratory/Chest Respiratory/Chest: Denies dyspnea Gastrointestinal Gastrointestinal: Denies abdominal pain, nausea or vomiting Genitourinary Genitourinary ED: Denies dysuria, hematuria or urinary frequency Musculoskeletal Musculoskeletal: Reports back pain; Denies arthralgias, myalgias or neck pain Integumentary Denies abscess, Abrasions or rash Neurologic Neurologic: Denies headache(s), paresthesias or weakness Hematologic/Lymphatic Hematologic/Lymphatic: Denies easy bleeding or easy bruising EXAM Physical Exam Const Vital Signs: 08/31/22 10:35 Temperature 98 F Temperature Source Temporal Pulse Rate 69 Respiratory Rate 18 Blood Pressure 143/78 H Blood Pressure Mean 99 Pulse Ox 99 Oxygen Delivery Method Room Air Positive well nourished and well developed General Appearance ED: well developed and NAD; Negative for pallor HEENT Reports moist mucous membranes HEENT Narrative: Head is atraumatic normocephalic. Ears normal Eyes PERRL and EOMs intact bilaterally General Eye ED: Negative for pale conjunctiva or scleral icterus Resp normal respiratory effort Cardio regular rate and regular rhythm GI normal to inspection, nondistended, normoactive bowel sounds, soft to palpation, non-tender, non-distended and no masses Back/Spine normal to inspection; Negative for no thoracic nor lumbar tenderness Back/Spine Narrative: Tenderness right paralumbar region Thoracic Spine / Upper Back: paraspinal muscle tenderness Lumbar Spine / Lower Back: ROM limited and straight leg raise negative bilaterally Extremity normal to inspection and no clubbing, cyanosis or edema General Extremety ED: Negative for edema General Extremity: Negative for edema Neuro oriented x3 and no sensory deficits noted Neuro Narrative: EHL intact. Gait observed with no foot drop. Able to walk on heels and toes. Patella ankle reflex are 1+ and symmetric. Bent to the left and right causes discomfort on the right side worse when he bends to the right. Flexion extension causes minimal if any increased pain Sensorium / Orientation: alert Motor Exam: strength 5/5 throughout Deep Tendon Reflexes: Rt Patellar (L4): 1+, Lt Patellar (L4): 1+, Rt Ankle (S1): 1+ and Lt Ankle (S1): 1+ Deep Tendon Reflexes Back: Rt Patellar (L4): 1+, Lt Patellar (L4): 1+, Rt Ankle (S1): 1+ and Lt Ankle (S1): 1+ Psych mental status grossly normal Skin no rashes or lesions noted and no wounds General Skin Exam: Negative for jaundice or pallor MDM MDM MDM Narrative Medical decision making narrative: Suspect patient has muscular back pain. Because of his history of ureterolithiasis UA was obtained and because he is diabetic with hypertension hypercholesterolemia and taking NSAIDs BMP was obtained to assess renal function. History & Record Review Additional record(s) reviewed:: Prior inpatient record (Remote admission for obstructing stone requiring lithotripsy x3 by Dr. Prado), Prior outpatient record, Prior ED visit and Prior labs Lab Data Attestation: I reviewed the patient's lab results. Lab results narrative: CBC is normal. BMP is remarkable and elevated creatinine from baseline, 1.4 to UA is negative for blood, leukoesterase and nitrites. There is glucose. Of note glucose is elevated on the basic metabolic panel of 233 with a normal CO2 anion gap. Labs: Laboratory Results - last 24 hr 08/31/22 08/31/22 08/31/22 10:57 10:57 10:57 WBC 8.5 RBC 5.50 Hgb 15.9 Hct 48.0 MCV 87.3 MCH 28.9 MCHC 33.1 RDW Std Deviation 41.1 RDW Coeff of Arnol 12.9 Plt Count 204 MPV 10.1 Immature Gran % (Auto) 0.600 Neut % (Auto) 56.2 Lymph % (Auto) 31.0 [place] % (Auto) 7.3 Eos % (Auto) 3.8 Baso % (Auto) 1.1 H Absolute Neuts (auto) 4.8 Absolute Lymphs (auto) 2.62 Nucleated RBC % 0 Sodium 135 L Potassium 4.4 Chloride 104 Carbon Dioxide 26.0 Anion Gap 5 BUN 21 H Creatinine 1.42 H Estim Creat Clear Calc 44.27 Est GFR (MDRD) Af Amer 62 Est GFR (MDRD) Non-Af 51 L BUN/Creatinine Ratio 14.8 Glucose 233 H Calcium 9.1 Urine Color Yellow Urine Clarity Clear Urine pH 6.0 Ur Specific [place] 1.010 Urine Protein Negative Urine Glucose (UA) 1000 H Urine Ketones Negative Urine Occult Blood Negative Urine Nitrite Negative Urine Bilirubin Negative Urine Urobilinogen Normal Ur Leukocyte Esterase Negative Urine RBC 0 SEEN Urine WBC 0 SEEN Ur Squamous Epith Cells 0 SEEN Urine Bacteria 0 SEEN Urine Mucus 0 SEEN Treatment and Re-Evaluation Narrative: Patient was informed of his results. He was informed not to take NSAIDs. Discharge Plan Triage Chief Complaint: Flank Pain ED Provider: Odilon Esquivel Dx/Rx/DC Orders Clinical Impression: Lower back pain, Atherosclerotic heart disease of [place] coronary artery without angina pectoris, Non-ischemic cardiomyopathy, Essential (primary) hypertension, Hyperlipidemia, Acute kidney insufficiency Instructions: ED Back and Neck Pain, General, ED Renal Insufficiency Prescriptions: No Action turmeric root extract 538 mg capsule 750 mg PO DAILY losartan 50 mg tablet 50 mg PO DAILY Qty: 90 3RF atorvastatin 40 mg tablet 40 mg PO QHS Qty: 90 3RF Farxiga 10 mg tablet 10 mg PO DAILY Qty: 90 3RF fexofenadine 180 MG tablet 180 mg PO DAILY PRN (Reason: Allergies) Label Comments: SEASONAL ALLERGIES sildenafil (pulm.hypertension) 20 MG tablet 20 mg PO DAILY PRN (Reason: ED) omega-3 fatty acids-fish oil 1 EACH capsule 1 ea PO DAILY lansoprazole 30 mg capsule,delayed release(DR/EC) 30 mg PO DAILY Qty: 90 4RF amlodipine 5 mg tablet 5 mg PO DAILY Qty: 90 3RF carvedilol 12.5 mg tablet 12.5 mg PO BID Qty: 180 3RF Rx Instructions: give with food (meal/snack) Primary Care Provider: Arnie Whalen Referrals: Arnie Whalen MD [Primary Care Provider] - 10-14 Days if not better Activity Restrictions/Additional Instructions: 1. Apply ice to right lower back 6-10 times a day 2. Do not take ibuprofen or Aleve or any medicine that is classified as a nonsteroidal anti-inflammatory medication. This may result in permanent kidney injury 3. Avoid activity that causes you pain Disposition Disposition: Home, Self Care
== END 2022-08-31 12:06 | disposition home or self-care (01) ==
PROVIDERS: Emergency Provider Emergency Medicine; PCP Family Medicine; Visit Provider Emergency Medicine
DX: M54.50 Low back pain, unspecified (principal); I42.8 Other cardiomyopathies; I25.10 Atherosclerotic heart disease of native coronary artery without angina pectoris; I10 Essential (primary) hypertension; N28.9 Disorder of kidney and ureter, unspecified; E78.00 Pure hypercholesterolemia, unspecified; X50.1XXA Overexertion from prolonged static or awkward postures, initial encounter
CPT/HCPCS: 80048; 81001; 85025; 99283; A4216

== ENCOUNTER 2022-09-03 09:54 | Emergency (ER) | payer MEDICARE, SELFPAY ==
[2022-09-03 09:55] VITALS: BP 150/86; PULSE 70; RESP 16; TEMP 36.6; O2SAT 99; BMI 27.9
[2022-09-03 10:28] LABS: Absolute Lymphocyte Count 2.09 X10^3/uL (0.83-4.51); Absolute Neutrophil Count 4.1 X10^3/uL (2.0-7.7); Basophil# 0.05 X10^3/uL; Basophil% 0.7 % (0-1); Eosinophil# 0.31 X10^3/uL; Eosinophils% 4.4 % (0-5); Hematocrit 43.7 % (40-54); Hemoglobin 14.7 g/dL (13.0-16.5); Lymphocyte # 2.09 X10^3/ul (0.83-4.51); Lymphocyte % 29.6 % (19-41); Mean Corp Hgb Conc 33.6 g/dL (32-36); Mean Corpuscular Hgb 28.8 pg (27.0-32.0); Mean Corpuscular Volume 85.7 fL (80-94); Mean Platelet Vol. 10.3 fl (6.2-12.0); Monocyte# 0.52 X10^3/uL; Monocyte% 7.4 % (0-10); NRBC Flagged by Analyzer 0 % (0-5); Neutrophil # 4.07 X10^3/uL (2.7-7.7); Neutrophil % 57.5 % (47-70); Platelet Count 159 K/mm3 (150-450); RBC Distribution Width CV 12.7 % (11.6-14.6); RBC Distribution Width SD 39.3 fl (35.1-43.9); White Blood Count 7.1 K/mm3 (4.4-11.0)
--- NOTE | 2022-09-03 10:30 | CT_ITS ---
INDICATION: right flank pain about two weeks, worse now. History of kidney stones EXAMINATION: CT ABDOMEN AND PELVIS WITHOUT CONTRAST - CT Abdomen And Pelvis W/O Contrast Injection TECHNIQUE: Helically acquired images were obtained of the abdomen and pelvis without oral or IV contrast. A radiation dose optimization technique was used for this scan. IV Contrast dosage and agent: None. Oral contrast: None. RADIATION DOSAGE (If Supplied By Facility): CTDIvol = ( 9.57 ) mGy, DLP = ( 514.30 ) mGycm COMPARISON: January 07, 2019 FINDINGS: LOWER CHEST: There is minimal dependent atelectasis within the lower lobes. No cardiomegaly or pericardial effusion. The lack of intravenous contrast limits evaluation of solid visceral organs. LIVER: Homogeneous. No focal mass. GALLBLADDER AND BILIARY TREE: No calcified gallstones. No gallbladder distension or wall edema. No intra- or extrahepatic biliary ductal dilation. PANCREAS: No focal cystic or solid mass. SPLEEN: Normal size without focal cystic or solid mass. ADRENAL GLANDS: No nodules. KIDNEYS AND URETERS: Normal renal size and position. There are bilateral renal cysts. No hydronephrosis. PERITONEUM: No ascites or free air. No other fluid collection. BOWEL: No evidence of acute appendicitis. No stomach or bowel distension. No focal inflammatory change. LYMPH NODES: No enlarged mesenteric or retroperitoneal lymph nodes. VESSELS: Aorta is non-dilated. There are peripheral calcifications of the abdominal aorta. URINARY BLADDER: Unremarkable. REPRODUCTIVE ORGANS: No the prostate gland is enlarged. ABDOMINAL WALL: No discrete abdominal or pelvic wall hernia. BONES: No there are stable bilateral L5 PARS defects associated with a grade 1 anterior spondylolisthesis of L5 on S1. There are degenerative changes of the visualized thoracic and lumbar spine. CT/Abdomen/Pelvis without Cont IMPRESSION: Enlarged prostate gland. Bilateral renal cysts. Atherosclerosis. Stable bilateral L5 pars defects associated with a grade 1 anterior spondylolisthesis of L5 on S1. Electronically Signed: Christa Arita MD at 11:08 EDT ,
[2022-09-03 10:32] LABS: Bacteria 0 SEEN /hpf (None Seen); Color, Urine Yellow (Yellow); Glucose, Dipstick 1000 mg/dl (Normal); Ketone-Dipstick Negative (Negative); Leukocyte Esterase-Dipstick Negative /ul (Negative); Mucous, Urine 0 SEEN /hpf (<or=2+); Nitrite-Dipstick Negative (Negative); Occult Blood-Urine Negative /ul (Negative); Protein-Dipstick Negative (Negative); Red Blood Cells-Urine 0 SEEN /hpf (0-5); Squamous Epithelial Cells - UA 0 SEEN /hpf (0-5); Urine Bilirubin Dipstick Negative (Negative); Urine Clarity Clear (Clear); Urine Urobilinogen Normal (Normal); White Blood Cells 0 SEEN /hpf (0-5)
--- NOTE | 2022-09-03 10:33 | ED.VIS.GI ---
HPI HPI - GI History of Present Illness Chief Complaint: Flank Pain Narrative Narrative: 76-year-old male with flank pain on the right. Its been there for a couple of weeks. Patient was seen 3 days ago and had urinalysis and blood work done which was all normal. He reports that the pain is getting worse. He describes the pain as intermittent and sharp. He has some nausea sometimes. It is positional however. He does state it hurts when he twists his trunk. No dysuria or hematuria. No fevers or chills. He does sometimes get sweats. Patient states he has a distant history of kidney stone when he saw Dr. Contreras for and it took a couple of times to get the stone out. Patient states pain is worsening and now it is an 8 of 10. There is not really radiation of pain. It does not radiate to the inguinal region. Does not radiate up or down. Does not radiate posteriorly. It does not hurt His side. He does not have any paresthesias. No rashes. PFSH PFS Medical History Arthritis Atherosclerotic heart disease of [place] coronary artery without angina pectoris COVID-19 (09/12/21) Essential (primary) hypertension First degree AV block Hyperlipidemia Laceration of forehead without complication Left bundle branch block Non-ischemic cardiomyopathy Pre-diabetes Prostate cancer Home Medications fexofenadine 180 mg tablet 180 mg PO DAILY PRN Allergies 03/29/16 [History Last Taken Unknown] omega-3 fatty acids-fish oil 300 mg-1,000 mg capsule 1 ea PO DAILY 03/29/16 [History Last Taken Unknown] sildenafil (pulm.hypertension) 20 mg tablet 20 mg PO DAILY PRN ED 03/29/16 [History Last Taken Unknown] turmeric root extract 538 mg capsule 750 mg PO DAILY 08/14/19 [History Last Taken Unknown] losartan 50 mg tablet 50 mg PO DAILY #90 tabs 10/19/20 [Rx Last Taken Unknown] lansoprazole 30 mg capsule,delayed release 30 mg PO DAILY #90 caps 11/02/20 [Rx Last Taken Unknown] atorvastatin 40 mg tablet 40 mg PO QHS #90 tabs 06/07/21 [Rx Last Taken Unknown] dapagliflozin propanediol 10 mg tablet (Farxiga) 10 mg PO DAILY #90 tabs 06/07/21 [Rx Last Taken Unknown] amlodipine 5 mg tablet 5 mg PO DAILY #90 tabs 09/26/21 [Rx Last Taken Unknown] carvedilol 12.5 mg tablet 12.5 mg PO BID #180 tabs 09/26/21 [Rx Last Taken Unknown] Allergy/AdvReac Type Severity Reaction Status Date / Time tree and shrub pollen Allergy Unknown Verified 09/03/22 09:56 metformin AdvReac Severe dizziness, Verified 09/03/22 09:56 drenching sweat Family History Father , age 74 from infection post leg amputation Post-operative infection Surgical History History of left heart catheterization (03/30/16) Social History household members: none Smoking Status: Never smoker alcohol intake: current alcohol intake frequency: a few times a month Alcohol type: beer ROS ROS ED Constitutional Constitutional ED: Denies chills, fever(s) or sweats Eyes Eyes: Denies blurry vision or change in vision ENT ENT ED: Denies ear pain or sore throat Cardiovascular Cardiovascular: Denies chest pain, palpitations or racing heartbeat Respiratory/Chest Respiratory/Chest: Denies cough, dyspnea or sputum Gastrointestinal Gastrointestinal: Reports nausea and other; Denies abdominal pain, constipation, diarrhea or vomiting Genitourinary Genitourinary ED: Denies dysuria, hematuria or urinary frequency Musculoskeletal Musculoskeletal: Reports back pain; Denies arthralgias, myalgias or neck pain Integumentary Denies abscess, Abrasions or rash Neurologic Neurologic: Denies headache(s), paresthesias or weakness Psychiatric Psychiatric: Denies anxiety, depression, suicidal ideation or suicidal thoughts Endocrine Endocrinology: Denies polydipsia or polyuria EXAM Physical Exam Const Vital Signs: 09/03/22 09:55 Temperature 97.8 F Temperature Source Temporal Pulse Rate 70 Respiratory Rate 16 Blood Pressure 150/86 H Blood Pressure Mean 107 Pulse Ox 99 Oxygen Delivery Method Room Air Positive well nourished HEENT Reports moist mucous membranes normocephalic Eyes PERRL and EOMs intact bilaterally Resp normal respiratory effort and clear to auscultation bilaterally Auscultation: Negative for rales, rhonchi or wheezes Cardio regular rate and regular rhythm GI non-tender, non-distended and no masses Back/Spine no CVA tenderness Back/Spine Narrative: The only pain elicited is pain with rotation of the trunk. If he rotates his trunk to the right he has the pain. No midline spinal tenderness, deformity, step-off. No rashes. No ecchymosis. Neuro CN's II-XII intact bilaterally Sensorium / Orientation: alert Psych mental status grossly normal Skin no wounds MDM MDM MDM Narrative Medical decision making narrative: Patient presenting with right flank pain. He has had it for weeks. He already had a work-up which was normal. He is concerned he has a kidney stone its not diagnosed. He does at times get nausea and he states the pain is sharp and nonradiating. No hematuria, dysuria. No fevers or chills. Differential includes UTI, pyelonephritis, diverticulitis, colitis, constipation,. Considered bowel obstruction however the patient has no history of surgery in his abdomen. Considered cholecystitis however the patient does not have a [place] sign and he does not have pain elicited when he eats. CBC was also on cell count, hemoglobin, platelets, differential. BMP to assess renal function, electrolytes, glucose. Urinalysis to assess for occult blood and infection. CBC shows a normal white blood cell count of 7.1. Hemoglobin hematocrit are stable. Platelets are normal. Urinalysis negative for infection and shows thousand glucose. BMP shows no new findings. His creatinine is similar to what it was before. Electrolytes are normal. Glucose [address] of the abdomen pelvis without contrast was obtained to rule out kidney stone and there is no evidence of stone. Stable bilateral L5 pars defects associated with a grade 1 anterior spondylolisthesis of L5 on S1. It does also show that there are some bilateral renal cysts. Findings discussed with the patient. Recommend follow-up with PCP to ensure resolution. Impression: 1. Bilateral L5 pars defects 2. Anterior spondylolisthesis of L5 on S1 3. Renal cyst Lab Data Attestation: I reviewed the patient's lab results. Labs: Laboratory Results - last 24 hr 09/03/22 09/03/22 09/03/22 10:22 10:22 10:22 WBC 7.1 RBC 5.10 Hgb 14.7 Hct 43.7 MCV 85.7 MCH 28.8 MCHC 33.6 RDW Std Deviation 39.3 RDW Coeff of Arnol 12.7 Plt Count 159 MPV 10.3 Immature Gran % (Auto) 0.400 Neut % (Auto) 57.5 Lymph % (Auto) 29.6 [place] % (Auto) 7.4 Eos % (Auto) 4.4 Baso % (Auto) 0.7 Absolute Neuts (auto) 4.1 Absolute Lymphs (auto) 2.09 Nucleated RBC % 0 Sodium 136 Potassium 4.3 Chloride 107 Carbon Dioxide 22.0 Anion Gap 7 BUN 22 H Creatinine 1.41 H Estim Creat Clear Calc 44.58 Est GFR (MDRD) Af Amer 62 Est GFR (MDRD) Non-Af 52 L BUN/Creatinine Ratio 15.6 Glucose 331 H Calcium 8.7 Urine Color Yellow Urine Clarity Clear Urine pH 6.0 Ur Specific [place] 1.010 Urine Protein Negative Urine Glucose (UA) 1000 H Urine Ketones Negative Urine Occult Blood Negative Urine Nitrite Negative Urine Bilirubin Negative Urine Urobilinogen Normal Ur Leukocyte Esterase Negative Urine RBC 0 SEEN Urine WBC 0 SEEN Ur Squamous Epith Cells 0 SEEN Urine Bacteria 0 SEEN Urine Mucus 0 SEEN Radiography Diagnostic Testing: Clinical Impression(s) from Imaging Studies Abdomen/Pelvis CT 09/03/22 10:30 IMPRESSION: Enlarged prostate gland. Bilateral renal cysts. Atherosclerosis. Stable bilateral L5 pars defects associated with a grade 1 anterior spondylolisthesis of L5 on S1. Electronically Signed: Christa Arita MD at 11:08 EDT , Discharge Plan Triage Chief Complaint: Flank Pain ED Provider: Paulo Goldberg Dx/Rx/DC Orders Prescriptions: No Action turmeric root extract 538 mg capsule 750 mg PO DAILY losartan 50 mg tablet 50 mg PO DAILY Qty: 90 3RF atorvastatin 40 mg tablet 40 mg PO QHS Qty: 90 3RF Farxiga 10 mg tablet 10 mg PO DAILY Qty: 90 3RF fexofenadine 180 MG tablet 180 mg PO DAILY PRN (Reason: Allergies) Label Comments: SEASONAL ALLERGIES sildenafil (pulm.hypertension) 20 MG tablet 20 mg PO DAILY PRN (Reason: ED) omega-3 fatty acids-fish oil 1 EACH capsule 1 ea PO DAILY lansoprazole 30 mg capsule,delayed release(DR/EC) 30 mg PO DAILY Qty: 90 4RF amlodipine 5 mg tablet 5 mg PO DAILY Qty: 90 3RF carvedilol 12.5 mg tablet 12.5 mg PO BID Qty: 180 3RF Rx Instructions: give with food (meal/snack) Primary Care Provider: Arnie Whalen Referrals: Arnie Whalen MD [Primary Care Provider] -
[2022-09-03 10:41] LABS: Anion Gap 7 (5-15); BUN 22 mg/dL (7-18); BUN/Creat Ratio 15.6 RATIO (10-20); Calcium,Total 8.7 mg/dL (8.5-10.1); Chloride 107 mmol/L (98-107); Creatinine, Serum 1.41 mg/dL (0.70-1.30); EST Glomerular Filtration Rate 52 mL/min (>60); Est Glom Filt Rate - Afr Amer 62 mL/min (>60); Estimated Creatinine Clearance 44.58 ml/min; Glucose 331 mg/dL (74-106); Potassium 4.3 mmol/L (3.5-5.1); Sodium Level 136 mmol/L (136-145)
[2022-09-03] MEDS: Ketorolac 15 MG/ML Vial IV (11:03)
== END 2022-09-03 12:03 | disposition home or self-care (01) ==
PROVIDERS: Emergency Provider Student in an Organized Health Care Education/Training Program; PCP Family Medicine; Visit Provider Student in an Organized Health Care Education/Training Program
DX: M43.19 Spondylolisthesis, multiple sites in spine (principal); E78.5 Hyperlipidemia, unspecified; N28.1 Cyst of kidney, acquired; I25.10 Atherosclerotic heart disease of native coronary artery without angina pectoris; I10 Essential (primary) hypertension; Z79.899 Other long term (current) drug therapy
CPT/HCPCS: 74176; 80048; 81001; 85025; 96374; 99282; A4216

== ENCOUNTER → 2023-03-29 | Outpatient (CLI) | payer MEDICARE, SELFPAY ==
[2023-03-29 12:24] LABS: Hematocrit 45.8 % (40-54); Hemoglobin 15.1 g/dL (13.0-16.5); Mean Corpuscular Hgb 28.4 pg (27.0-32.0); Mean Corpuscular Volume 86.1 fL (80-94); Mean Platelet Vol. 10.8 fl (6.2-12.0); Platelet Count 169 K/mm3 (150-450); RBC Distribution Width CV 12.9 % (11.6-14.6); RBC Distribution Width SD 40.1 fl (35.1-43.9); Red Blood Count 5.32 M/mm3 (4.6-6.2); White Blood Count 7.6 K/mm3 (4.4-11.0)
[2023-03-29 13:04] LABS: Anion Gap 6 (5-15); BUN 16 mg/dL (7-18); BUN/Creat Ratio 12.3 RATIO (10-20); Calcium,Total 8.5 mg/dL (8.5-10.1); Chloride 109 mmol/L (98-107); EST Glomerular Filtration Rate 57 mL/min (>60); Est Glom Filt Rate - Afr Amer 68 mL/min (>60); Glucose 220 mg/dL (74-106); Iron 88 ug/dL (65-175); Potassium 4.2 mmol/L (3.5-5.1); Sodium Level 139 mmol/L (136-145)
[2023-03-29 13:05] LABS: PTHIN 57.1 pg/mL (18.4-80.1)
[2023-03-29 13:10] LABS: Vitamin D,25 Hydroxy 23.4 ng/mL
== END | disposition home or self-care (01) ==
LOC: MTLAB 09:28
PROVIDERS: PCP Family Medicine; Referring Provider Family Medicine; Visit Provider Family Medicine
DX: N18.30 Chronic kidney disease, stage 3 unspecified (principal)
CPT/HCPCS: 36415; 80048; 82306; 83540; 83970; 85027

== ENCOUNTER → 2023-06-29 | Outpatient (CLI) | payer MEDICARE, SELFPAY ==
--- NOTE | 2023-06-29 07:41 | ECHOCS_ITS ---
Reason For Study: ASHD/CAD Procedure This was a 2D Doppler, Color Flow transthoracic echocardiogram. Contrast injection was performed. Exam performed in department. Left Ventricle Normal LV size. Septal motion consistent with bundle branch block. The estimated ejection fraction is 35 %. Stage 1 diastolic dysfunction. There is moderate global hypokinesis of the left ventricle. Right Ventricle Normal RV size. Normal systolic function. Atria Normal left atrium. Normal right atrium. Patent foramen ovale. Mitral Valve Normal mitral valve. Tricuspid Valve Normal tricuspid valve. Mild tricuspid valve insufficiency. Pulmonary artery systolic pressure is 26 mmHg. Aortic Valve Trisinus/trileaflet aortic valve. Pulmonic Valve Normal pulmonic valve. Great Vessels Mildly dilated aortic root. The pulmonary artery is normal size. Normal inferior vena cava. Pericardium/Pleural No pericardial effusion. Medication 22 gauge I.V. with prn adaptor inserted into right arm. Diluted definity 3ml given slow IV push to enhance endocardial definition. Performed a rapid injection of agitated mix of 9 cc saline and 1cc air to assess for atrial septal defect. MMode/2D Measurements & Calculations LVIDd: 5.0 cm IVSd: 1.0 cm Ao root diam: 3.7 cm LVIDs: 3.9 cm LVPWd: 1.00 cm LA dimension: 4.3 cm RVDd: 4.4 cm FS: 21.4 % LAV(MOD-bp): 44.3 ml LVAd ap4: 40.2 cm2 SV(MOD-sp4): 60.8 ml LAV(MOD-bp) Indexed: 21.7 ml/m2 LVLd ap4: 9.4 cm LAV(MOD-sp2): 46.7 ml EDV(MOD-sp4): 137.4 ml LAV(MOD-sp4): 36.7 ml EDV(sp4-el): 146.3 ml LVAs ap4: 27.3 cm2 LVLs ap4: 7.8 cm ESV(MOD-sp4): 76.7 ml ESV(sp4-el): 81.4 ml EF(MOD-sp4): 44.2 % EF(sp4-el): 44.4 % SV(sp4-el): 64.9 ml LA A4 area: 13.9 cm2 RA A4 area: 12.5 cm2 TAPSE: 1.9 cm Time Measurements MV dec time: 0.31 sec Doppler Measurements & Calculations MV E max vinh: 47.1 cm/sec Lat Peak E' Vinh: 6.9 cm/sec Med Peak E' Vinh: 5.0 cm/sec MV A max vinh: 85.4 cm/sec E/E' lat: 6.8 E/E' med: 9.3 MV E/A: 0.55 MV V2 max: 98.7 cm/sec MV P1/2t max vinh: 51.3 cm/sec Ao V2 max: 98.5 cm/sec MV max P.9 mmHg MV P1/2t: 101.6 msec Ao max P.9 mmHg MV V2 mean: 44.8 cm/sec MV mean P.0 mmHg MV dec slope: 147.8 cm/sec2 MV V2 VTI: 21.0 cm MVA(P1/2t): 2.2 cm2 LV V1 max: 73.8 cm/sec PA V2 max: 113.8 cm/sec TR max vinh: 237.0 cm/sec LV V1 max P.2 mmHg TR max P.5 mmHg ECHO/Echo Complete W/ Contrast Interpretation Summary Normal LV size. Septal motion consistent with bundle branch block. The estimated ejection fraction is 35 %. Patent foramen ovale. Stage 1 diastolic dysfunction. Contrast injection was performed. Compared to previous study, the left ventricu lar systolic function is the same.. Ordering Physician: Benson Cross Referring Physician: Anup Whalen Performed By: Wan Eduardo RCS
== END | disposition home or self-care (01) ==
PROVIDERS: PCP Family Medicine; Referring Provider Internal Medicine Cardiovascular Disease; Visit Provider Internal Medicine Cardiovascular Disease
DX: I25.10 Atherosclerotic heart disease of native coronary artery without angina pectoris (principal)
CPT/HCPCS: 93306; Q9957; A4216; C8929

== ENCOUNTER → 2023-10-16 | Outpatient (CLI) | payer MEDICARE, SELFPAY ==
[2023-10-16 12:45] LABS: Vitamin D,25 Hydroxy 27.2 ng/mL
[2023-10-16 12:53] LABS: Anion Gap 7 (5-15); BUN 18 mg/dL (7-18); BUN/Creat Ratio 14.4 RATIO (10-20); Calcium,Total 8.8 mg/dL (8.5-10.1); Chloride 104 mmol/L (98-107); Creatinine, Serum 1.25 mg/dL (0.70-1.30); EST Glomerular Filtration Rate 59 mL/min (>60); Est Glom Filt Rate - Afr Amer 72 mL/min (>60); Glucose 200 mg/dL (74-106); Potassium 4.5 mmol/L (3.5-5.1); Sodium Level 136 mmol/L (136-145); Thyroid Stim Hormone (TSH) 3.14 uIU/mL (0.358-3.74)
== END | disposition home or self-care (01) ==
LOC: MFPLAB 09:39
PROVIDERS: PCP Family Medicine; Visit Provider Family Medicine
DX: E11.22 Type 2 diabetes mellitus with diabetic chronic kidney disease (principal); E11.43 Type 2 diabetes mellitus with diabetic autonomic (poly)neuropathy; N18.30 Chronic kidney disease, stage 3 unspecified
CPT/HCPCS: 36415; 80048; 82306; 84443

== ENCOUNTER → 2024-08-18 | Outpatient (CLI) | payer MEDICARE, SELFPAY ==
[2024-08-18 10:08] LABS: Hematocrit 44.9 % (40-54); Hemoglobin 15.2 g/dL (13.0-16.5); Mean Corp Hgb Conc 33.9 g/dL (32-36); Mean Corpuscular Hgb 29.2 pg (27.0-32.0); Mean Corpuscular Volume 86.2 fL (80-94); Mean Platelet Vol. 10.7 fl (6.2-12.0); Platelet Count 147 K/mm3 (150-450); RBC Distribution Width CV 12.8 % (11.6-14.6); RBC Distribution Width SD 39.8 fl (35.1-43.9); Red Blood Count 5.21 M/mm3 (4.6-6.2); White Blood Count 7.9 K/mm3 (4.4-11.0)
[2024-08-18 13:16] LABS: ALB/GLOB Ratio 1.4 RATIO (0.9-2.4); AST(SGOT) 20 U/L (<=37); Alanine Aminotransfer ALT/SGPT 22 U/L (<=46); Albumin, Serum 4.2 g/dL (3.4-4.8); Alkaline Phosphatase 86 U/L (40-129); Anion Gap 12 (5-15); BUN 13 mg/dL (4-19); BUN/Creat Ratio 11.2 RATIO (10-20); Calcium,Total 8.9 mg/dL (7.6-11.0); Carbon Dioxide 22.5 mmol/L (21.0-32.0); Chloride 104 mmol/L (98-108); Cholesterol 146 mg/dL (<=200); Creatinine, Serum 1.18 mg/dL (0.70-1.20); EST Glomerular Filtration Rate 62 (>60); Glucose 268 mg/dL (70-99); High Density Lipoprotein 35 mg/dL; Low Density Lipoprotein Calc. 66 mg/dL; Potassium 4.6 mmol/L (3.3-5.1); Protein, Total 7.2 g/dL (5.9-8.4); Sodium Level 138 mmol/L (133-145); Total Bilirubin 0.98 mg/dL (0.00-1.30); Triglycerides 223 mg/dL; Very Low Density Lipoprotein 45 mg/dL (5-40); cholesterol:hdl ratio screen 4.16
[2024-08-18 13:49] LABS: Iron 98 ug/dL (65-175)
== END | disposition home or self-care (01) ==
LOC: LAB 09:01
PROVIDERS: PCP Family Medicine; Referring Provider Urology; Visit Provider Urology
DX: R97.20 Elevated prostate specific antigen [PSA] (principal); E11.65 Type 2 diabetes mellitus with hyperglycemia; E11.22 Type 2 diabetes mellitus with diabetic chronic kidney disease; N18.30 Chronic kidney disease, stage 3 unspecified
CPT/HCPCS: 36415; 80053; 80061; 82306; 83540; 84153; 84443; 85027

== ENCOUNTER → 2024-11-03 | Outpatient (CLI) | payer MEDICARE, SELFPAY ==
--- NOTE | 2024-11-03 13:35 | ECHOD_ITS ---
Reason For Study Reason For Study: DCMP Procedure This was a 2D Doppler, Color Flow transthoracic echocardiogram. Exam performed in department. Left Ventricle Normal left ventricle. The left ventricular ejection fraction is 35 %. Septal motion consistent with bundle branch block. There is moderate global hypokinesis of the left ventricle. Right Ventricle Normal RV size. Normal systolic function. Atria Normal left atrium. Normal right atrium. Mitral Valve Normal mitral valve. Tricuspid Valve Normal tricuspid valve. Aortic Valve Trisinus/trileaflet aortic valve. Pulmonic Valve Normal pulmonic valve. Great Vessels Normal aortic root. The pulmonary artery is normal size. Inferior vena cava collapse with respiration. Pericardium/Pleural No pericardial effusion. MMode/2D Measurements & Calculations LVOT diam: 2.0 cm Ao root diam: 3.2 cm LAV(MOD- bp): 33.3 ml LVOT area: 3.1 cm2 LAV(MOD- bp) Indexed: 16.4 ml/m2 LAV(MOD- sp2): 26.5 ml LAV(MOD- sp4): 36.9 ml SV(MOD-sp4): 35.8 ml SV(sp4- el): 34.6 ml LVAd ap4: 31.8 cm2 LVLd ap4: 8.9 cm SI(MOD-sp4): 17.7 ml/m2 EDV(MOD-sp4): 96.1 ml EDV(sp4-el): 96.5 ml LVAs ap4: 23.6 cm2 LVLs ap4: 7.6 cm ESV(MOD-sp4): 60.3 ml ESV(sp4-el): 61.9 ml EF(MOD-sp4): 37.2 % EF(sp4-el): 35.8 % LA A4 area: 14.6 cm2 LA dimension(2D): 3.5 cm RA A4 area: 5.6 cm2 Doppler Measurements & Calculations MV E max vinh: 104.7 cm/sec Lat Peak E' Vinh: 11.5 cm/sec Med Peak E' Vinh: 7.3 cm/sec E/E' lat: 9.1 E/E' med: 14.3 MV V2 max: 104.3 cm/sec Ao V2 max: 84.8 cm/sec LV V1 max: 72.6 cm/sec MV max P.4 mmHg Ao max P.9 mmHg LV V1 max P.1 mmHg MV V2 mean: 60.5 cm/sec Ao V2 mean: 58.2 cm/sec LV V1 mean P.2 mmHg MV mean P.8 mmHg Ao mean P.6 mmHg LV V1 mean: 50.6 cm/sec MV V2 VTI: 18.8 cm Ao V2 VTI: 17.9 cm LV V1 VTI: 14.9 cm AV (velocity ratio): 0.83 MVA(VTI): 2.5 cm2 CLEMENCIA(I,D): 2.6 cm2 CLEMENCIA(V,D): 2.7 cm2 SV(LVOT): 46.2 ml ECHO/Echo Complete Interpretation Summary The left ventricular ejection fraction is 35 %. Normal left ventricle. Septal motion consistent with bundle branch block. There is moderate global hypokinesis of the left ventricle. Compared to previous study, the left ventricular systolic function is the same. . Ordering Physician: Benson Cross Referring Physician: Benson Cross Performed By: Estrella Lockhart RCS
== END | disposition home or self-care (01) ==
LOC: CVS 13:35
PROVIDERS: PCP Family Medicine; Referring Provider Internal Medicine Cardiovascular Disease; Visit Provider Internal Medicine Cardiovascular Disease
DX: I42.8 Other cardiomyopathies (principal)
CPT/HCPCS: 93306